=== PATIENT | female | born 1945 ===

== ENCOUNTER 2018-07-01 21:02 | Inpatient (IN) | payer MEDICARE, MEDICAID ==
[2018-07-01 21:03] VITALS: BMI 40.2
[2018-07-01] MEDS ORDERED: Albuterol-Ipratrop 3 mg / 0.5 (3 ml) UD INH STA ×2 (22:06→23:17)
--- NOTE | 2018-07-01 22:08 | C.PDOC ---
History Of Present Illness 73 y/o female c/o chest pain, lower back pain, subjective fever and cough. pt seen by pmd today and sts she went to pharmacy but rx from pmd not there. pt reports she was given an injection in doctor's office of unknown medication. pt took nothing for pain. 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 History/Exam Limitations: language barrier Onset/Duration Of Symptoms: Days Current Symptoms Are (Timing): Worse Quality Of Discomfort: "Pain" Past Medical History Reviewed: Historical Data, Nursing Documentation, Vital Signs Vital Signs: Last Vital Signs Temp 99.5 F 07/01/18 21:18 Pulse 108 H 07/01/18 21:18 Resp 20 07/01/18 21:18 BP 136/89 07/01/18 21:18 Pulse Ox 96 07/01/18 21:18 - Medical History PMH: Arthritis (LOW BACK AND RIGHT SHOULDER), Asthma, Colonic Polyps, Diverticulitis, HTN Denies: Chronic Kidney Disease Family History: States: Unknown Family Hx - Social History Hx Tobacco Use: No Hx Alcohol Use: Yes Hx Substance Use: No - Immunization History Hx Tetanus Toxoid Vaccination: No Hx Influenza Vaccination: Yes Hx Pneumococcal Vaccination: Yes Review Of Systems Constitutional: Positive for: Fever (subjective) Cardiovascular: Negative for: Chest Pain Respiratory: Positive for: Cough, Shortness of Breath, Pleuritic Pain, Wheezing Gastrointestinal: Negative for: Nausea, Vomiting, Abdominal Pain Musculoskeletal: Positive for: Back Pain Skin: Negative for: Rash Neurological: Negative for: Weakness, Numbness Physical Exam - Physical Exam Appears: Non-toxic, Other (ovese elderly female, ) Skin: Warm, Dry Head: Atraumatic, Normacephalic Oral Mucosa: Moist Throat: No Erythema, No Exudate Neck: Supple Chest: Symmetrical, No Deformity, Tenderness (antrerior chest wall) Cardiovascular: Rhythm Regular, No Murmur Respiratory: Decreased Breath Sounds, No Rales, No Rhonchi, Wheezing, Other (coarse hacking/wheezing cough) Gastrointestinal/Abdominal: Bowel Sounds, Soft, No Tenderness Neurological/Psych: Oriented x3, Normal Speech, Normal Cognition ED Course And Treatment - Laboratory Results Result Diagrams: 07/01/18 22:46 07/01/18 22:46 O2 Sat by Pulse Oximetry: 96 Medical Decision Making Medical Decision Makin discussed with Dr Molina; pt was given dose of steroids via im injection in office today. another dose not given in er tonight. [id number] Molina, will admit to her service. Disposition Discussed With .: Yin Molina Doctor Will See Patient In The: Hospital - Disposition Disposition: HOSPITALIZED Disposition Time: 00:34 Condition: STABLE - Clinical Impression Clinical Impression: Asthma with exacerbation, Pneumonia, Bandemia
[2018-07-01] MEDS ORDERED: Albuterol-Ipratrop 3 mg / 0.5 (3 ml) UD ONE ×2 (22:39→23:24)
[2018-07-01 23:04] LABS: ALB/GLOB RATIO 1.5 (1.0-2.1); ALBUMIN 4.5 g/dL (3.5-5.0); ALT/SGPT 28 U/L (9-52); AST/SGOT 28 U/L (14-36); BLOOD UREA NITROGEN 19 mg/dL (7-17); CALCIUM 9.1 mg/dl (8.6-10.4); GFR NON-AFRICAN AMERICAN > 60
[2018-07-01] MEDS ORDERED: cefTRIAXone IV 1 gm in Dextros 50 ML IVPB STA (23:07)
[2018-07-01] MEDS ORDERED: Azithromycin 500 MG in Sodium Chloride 0.9% 250 ML IVPB STA (23:08)
[2018-07-01] MEDS ORDERED: Azithromycin 500mg/250ML NS 500 MG/250 ML BAG IVPB ONE (23:17)
[2018-07-01 23:19] LABS: SQUAMOUS EPITHIAL < 1 /hpf (0-5); URINE BACTERIA RARE (<OCC); URINE BILIRUBIN NEGATIVE (NEGATIVE); URINE BLOOD NEGATIVE (NEGATIVE); URINE CLARITY Clear (Clear); URINE COLOR Straw (YELLOW); URINE GLUCOSE (UA) NORMAL (Normal); URINE LEUKOCYTE ESTERASE NEG Leu/uL (Negative); URINE PROTEIN NEGATIVE (NEGATIVE); URINE UROBILINOGEN NORMAL mg/dL (0.2-1.0)
[2018-07-01 23:27] LABS: BASO # 0.1 K/uL (0.0-0.2); BASO % 0.8 % (0.0-2.0); EOS % 0.6 % (0.0-4.0); HEMOGLOBIN 13.1 g/dL (11.0-16.0); MONO # 0.3 K/uL (0.0-0.8); NEUT # 6.7 K/uL (1.8-7.0); WHITE BLOOD COUNT 7.9 K/uL (4.8-10.8)
[2018-07-01 23:33] LABS: LYMPH # 0.7 K/uL (1.0-4.3); LYMPH % 9.4 % (20.0-40.0); MEAN CELL VOLUME 88.5 fL (81.0-99.0); MEAN CORPUSCULAR HEMOGLOBIN 28.8 pg (27.0-31.0); MEAN CORPUSCULAR HGB CONC 32.5 g/dL (33.0-37.0); MEAN PLATELET VOLUME 10.4 fL (7.2-11.7); MONO % 3.9 % (0.0-10.0); NEUT % 85.3 % (50.0-75.0); NRBC % 0.3 % (0.0-2.0); PLATELET COUNT 176 K/uL (130-400); RBC 4.54 Mil/uL (3.80-5.20)
[2018-07-01 23:52] LABS: PLATELET ESTIMATE NORMAL (NORMAL)
[2018-07-01 23:54] LABS: BANDS 6 % (0-2); LYMPHOCYTE 10 % (20-40); MONOCYTE 4 % (0-10); NEUTROPHIL 80 % (50-75); TOTAL CELLS COUNTED 100
[2018-07-01 23:55] LABS: ANISOCYTOSIS SLIGHT; POIKILOCYTOSIS SLIGHT
[2018-07-01 23:56] LABS: HYPERSEGMENTATION PRESENT; LARGE PLATELETS PRESENT; MICROCYTOSIS SLIGHT; POLYCHROMIC SLIGHT; SMUDGE CELLS PRESENT; SPHEROCYTES SLIGHT
[2018-07-02] MEDS ORDERED: Albuterol 0.083% Inhal Sol (2.5 mg/3 mL) UD INH PRN (00:45)
[2018-07-02] MEDS: Sodium Chloride 0.45% 1,000 ML IV SCH ×4 (01:30→21:30)
[2018-07-02] MEDS: MethylPREDNISolone 40 mg Vial IVP SCH ×3 (06:35→21:28)
[2018-07-02] MEDS: Albuterol 0.083% Inhal Sol (2.5 mg/3 mL) UD INH SCH ×3 (07:30→20:00)
[2018-07-02] MEDS ORDERED: Enoxaparin 40 mg Syringe SC ONE ×2 (08:00→11:30)
[2018-07-02 08:29] LABS: CK-MB 1.07 ng/mL (0.0-3.38)
[2018-07-02 08:53] LABS: BLOOD UREA NITROGEN 13 mg/dL (7-17); CALCIUM 8.9 mg/dl (8.6-10.4); GFR NON-AFRICAN AMERICAN > 60
[2018-07-02] MEDS ORDERED: Fluticasone Nasal 50 mcg/Spray NS SCH (10:00)
[2018-07-02] MEDS: Azithromycin 500 MG in Sodium Chloride 0.9% 250 ML IVPB SCH (10:31)
[2018-07-02] MEDS: Pantoprazole 20 mg EC Tab PO SCH (10:33)
--- NOTE | 2018-07-02 10:46 | RAD ---
HISTORY: SOB COMPARISON: Chest x-ray performed 05/09/15 TECHNIQUE: Chest PA and lateral FINDINGS: Examination markedly limited by habitus and hypoinflation. LUNGS: Mild left basilar atelectasis/infiltrate. PLEURA: No significant pleural effusion identified. No definite pneumothorax . CARDIOVASCULAR: Heart size appears within normal limits. Ectatic aorta. Faint atherosclerotic calcifications of the aorta. OSSEOUS STRUCTURES: Degenerative changes of the spine. VISUALIZED UPPER ABDOMEN: Unremarkable. OTHER FINDINGS: None. IMPRESSION: Mild left basilar atelectasis/infiltrate.
[2018-07-02] MEDS: cefTRIAXone IV 1 gm in Dextros 50 ML IVPB SCH (11:33)
--- NOTE | 2018-07-02 18:58 | CP.PCM.HP ---
History of Present Illness - History of Present Illness History of Present Illness: cc: sob and wheezing HPI; PT is a 73 year old female well known to me who presented to my office with wheezing and uri. PT was given one dose of IM Solumedrol and given sent home with meds for asthma exac and anbx. Upon arriving at home she became fearful of being home alone as she had been wheezing and not able to sleep at night. Pt reports no chest pain , no fever, no leg edema, PT is a no smoker. Pmhx asthma htn morbid obesity vertigo uterine ca sp surgery HPV+ OA Major depression recurrent Sleep apnea with poor compliance with CPA Radiculopathy impaired memory mild. social no tob no ethoh Allergy to aubrey ( angioedema) MEds; amlodipine 5 qd ventolin carafate HCTz inhaled corticosteroid Present on Admission - Present on Admission Any Indicators Present on Admission: No Review of Systems - Constitutional Constitutional: Snoring, Sleep Apnea. absent: Anorexia, Chills, Fatigue, Fever - EENT Nose/Mouth/Throat: absent: Epistaxis, Dry Mouth - Cardiovascular Cardiovascular: absent: Chest Pain - Respiratory Respiratory: Cough, Wheezing, Pain with Coughing - Gastrointestinal Gastrointestinal: absent: Abdominal Pain, Diarrhea Past Patient History - Past Medical History & Family History Past Medical History?: Yes - Past Social History Smoking Status: Unknown If Ever Smoked - CARDIAC Hx Cardiac Disorders: Yes Hx Hypertension: Yes - PULMONARY Hx Respiratory Disorders: Yes Hx Asthma: Yes - NEUROLOGICAL Hx Neurological Disorder: Yes (FORGETFULNESS) Hx Dizziness: Yes Hx Syncope: Yes Hx Vertigo: Yes - HEENT Hx HEENT Problems: No - RENAL Hx Chronic Kidney Disease: No - ENDOCRINE/METABOLIC Hx Endocrine Disorders: No - HEMATOLOGICAL/ONCOLOGICAL Hx Blood Disorders: No - INTEGUMENTARY Hx Dermatological Problems: No - MUSCULOSKELETAL/RHEUMATOLOGICAL Hx Arthritis: Yes (LOW BACK AND RIGHT SHOULDER) - GASTROINTESTINAL Hx Gastrointestinal Disorders: Yes Hx Diverticulitis: Yes - GENITOURINARY/GYNECOLOGICAL Hx Genitourinary Disorders: No - PSYCHIATRIC Hx Psychophysiologic Disorder: No Hx Substance Use: No - SURGICAL HISTORY Hx Surgeries: Yes Hx Hysterectomy: Yes Other/Comment: VARICOSE VEINS 3 MONTHS AGO; BLADDER LIFT - ANESTHESIA Hx Anesthesia: Yes Hx Anesthesia Reactions: No Hx Malignant Hyperthermia: No Has any member of the family had a problem w/ anesthesia?: No Meds Allergies/Adverse Reactions: Allergies Allergy/AdvReac Type Severity Reaction Status Date / Time No Known Allergies Allergy Verified 05/09/15 21:53 Physical Exam - Head Exam Head Exam: ATRAUMATIC - Eye Exam Eye Exam: Normal appearance Pupil Exam: PERRL - ENT Exam ENT Exam: Mucous Membranes Moist - Neck Exam Neck exam: Positive for: Normal Inspection - Respiratory Exam Respiratory Exam: Rhonchi, Wheezes - Cardiovascular Exam Cardiovascular Exam: REGULAR RHYTHM, +S1, +S2. absent: JVD - GI/Abdominal Exam GI & Abdominal Exam: Normal Bowel Sounds, Soft. absent: Distended - Extremities Exam Extremities exam: Negative for: joint swelling Results - Vital Signs Recent Vital Signs: Last Vital Signs Temp 97.7 F 07/02/18 15:00 Pulse 87 07/02/18 15:00 Resp 20 07/02/18 15:00 BP 115/70 07/02/18 15:00 Pulse Ox 95 07/02/18 15:00 - Labs Result Diagrams: 07/01/18 22:46 07/02/18 07:26 Labs: Laboratory Results - last 24 hr 07/01/18 07/01/18 07/01/18 22:46 22:46 22:46 WBC 7.9 RBC 4.54 Hgb 13.1 Hct 40.2 MCV 88.5 MCH 28.8 MCHC 32.5 L RDW 15.0 H Plt Count 176 MPV 10.4 Neut % (Auto) 85.3 H Lymph % (Auto) 9.4 L Gem % (Auto) 3.9 Eos % (Auto) 0.6 Baso % (Auto) 0.8 Neut # (Auto) 6.7 Lymph # (Auto) 0.7 L Gem # (Auto) 0.3 Eos # (Auto) 0.0 Baso # (Auto) 0.1 Neutrophils % (Manual) 80 H Band Neutrophils % 6 H Lymphocytes % (Manual) 10 L Monocytes % (Manual) 4 Hypersegmented Polys Present Smudge Cells Present Platelet Estimate Normal Large Platelets Present Polychromasia Slight Poikilocytosis (manual Slight Anisocytosis (manual) Slight Microcytosis (manual) Slight Spherocytes Slight Sodium 139 Potassium 4.1 Chloride 102 Carbon Dioxide 25 Anion Gap 15 BUN 19 H Creatinine 0.6 L Est GFR ( Amer) > 60 Est GFR (Non-Af Amer) > 60 Random Glucose 126 H D Calcium 9.1 Total Bilirubin 0.4 AST 28 ALT 28 Alkaline Phosphatase 96 Total Creatine Kinase CK-MB (Mass) Troponin I < 0.0120 Total Protein 7.5 Albumin 4.5 Globulin 3.1 Albumin/Globulin Ratio 1.5 Urine Color Urine Clarity Urine pH Ur Specific [place] Urine Protein Urine Glucose (UA) Urine Ketones Urine Blood Urine Nitrate Urine Bilirubin Urine Urobilinogen Ur Leukocyte Esterase Urine WBC (Auto) Urine RBC (Auto) Ur Squamous Epith Cells Urine Bacteria Influenza Typ A,B (EIA) Negative for flu a/b 07/01/18 07/02/18 23:14 07:26 WBC RBC Hgb Hct MCV MCH MCHC RDW Plt Count MPV Neut % (Auto) Lymph % (Auto) Gem % (Auto) Eos % (Auto) Baso % (Auto) Neut # (Auto) Lymph # (Auto) Gem # (Auto) Eos # (Auto) Baso # (Auto) Neutrophils % (Manual) Band Neutrophils % Lymphocytes % (Manual) Monocytes % (Manual) Hypersegmented Polys Smudge Cells Platelet Estimate Large Platelets Polychromasia Poikilocytosis (manual Anisocytosis (manual) Microcytosis (manual) Spherocytes Sodium 139 Potassium 4.0 Chloride 106 Carbon Dioxide 24 Anion Gap 13 BUN 13 Creatinine 0.5 L Est GFR ( Amer) > 60 Est GFR (Non-Af Amer) > 60 Random Glucose 117 H Calcium 8.9 Total Bilirubin AST ALT Alkaline Phosphatase Total Creatine Kinase 114 CK-MB (Mass) 1.07 Troponin I < 0.0120 Total Protein Albumin Globulin Albumin/Globulin Ratio Urine Color Straw Urine Clarity Clear Urine pH 7.0 Ur Specific [place] 1.004 Urine Protein Negative Urine Glucose (UA) Normal Urine Ketones Negative Urine Blood Negative Urine Nitrate Negative Urine Bilirubin Negative Urine Urobilinogen Normal Ur Leukocyte Esterase Neg Urine WBC (Auto) < 1 Urine RBC (Auto) < 1 Ur Squamous Epith Cells < 1 Urine Bacteria Rare Influenza Typ A,B (EIA) Assessment & Plan - Assessment and Plan (Free Text) Assessment: cxr infiltrate/atelectasis Asthma exacerbation acute bronchitis/pnemonia htn mild dehydration Gentle hydration steroids nebs abx gi and dvt prophylaxis
[2018-07-02] MEDS: Budesonide 0.5 mg/2 ml Inhal Susp UD INH SCH (20:00)
[2018-07-02] MEDS: Fluticasone Nasal 50 mcg/Spray NS SCH (21:28)
[2018-07-03] MEDS: Albuterol 0.083% Inhal Sol (2.5 mg/3 mL) UD INH SCH ×4 (03:03→20:19)
[2018-07-03] MEDS: MethylPREDNISolone 40 mg Vial IVP SCH ×2 (05:44→14:27)
[2018-07-03] MEDS: Sodium Chloride 0.45% 1,000 ML IV SCH (05:46)
[2018-07-03] MEDS: Budesonide 0.5 mg/2 ml Inhal Susp UD INH SCH ×2 (07:35→20:19)
[2018-07-03 08:02] LABS: BLOOD UREA NITROGEN 16 mg/dL (7-17); CALCIUM 9.2 mg/dl (8.6-10.4); GFR NON-AFRICAN AMERICAN > 60
[2018-07-03] MEDS: Azithromycin 500 MG in Sodium Chloride 0.9% 250 ML IVPB SCH (08:49)
[2018-07-03] MEDS: Pantoprazole 20 mg EC Tab PO SCH (09:18)
[2018-07-03] MEDS: Fluticasone Nasal 50 mcg/Spray NS SCH ×2 (09:19→20:14)
[2018-07-03] MEDS: NIFEdipine 30 mg ER Tab PO SCH (09:20)
[2018-07-03] MEDS ORDERED: Potassium Chloride 20 mEq ER Tab PO ONE ×2 (10:00→20:00)
[2018-07-03] MEDS: cefTRIAXone IV 1 gm in Dextros 50 ML IVPB SCH (11:25)
[2018-07-03] MEDS: Enoxaparin 40 mg Syringe SC SCH (11:33)
--- NOTE | 2018-07-03 18:09 | CP.PCM.PN ---
Subjective - Date & Time of Evaluation Date of Evaluation: 07/03/18 Time of Evaluation: 18:09 - Subjective Subjective: Pt states wheezing has improved still coughing but dryer pt reports was able to walk a little today but feels weak on her feet Objective - Vital Signs/Intake and Output Vital Signs (last 24 hours): Temp Pulse Resp BP Pulse Ox 97.8 F 67 20 156/63 H 98 07/03/18 16:00 07/03/18 16:00 07/03/18 16:00 07/03/18 16:00 07/03/18 16:00 Intake and Output: 07/03/18 07/03/18 06:59 18:59 Intake Total 1050 1155 Output Total 600 Balance 450 1155 - Medications Medications: Current Medications Albuterol Sulfate (Albuterol 0.083% Inhal Renetta (2.5 Mg/3 Ml) Ud) 2.5 mg INH RQ6 [facility] Last Admin: 07/03/18 13:20 Dose: 2.5 mg Albuterol Sulfate (Albuterol 0.083% Inhal Renetta (2.5 Mg/3 Ml) Ud) 2.5 mg INH RQ4 PRN PRN Reason: Wheezing Alprazolam (Xanax) 0.25 mg PO DAILY PRN PRN Reason: Anxiety Budesonide (Pulmicort Respules) 0.5 mg INH RQ12 [facility] Last Admin: 07/03/18 07:35 Dose: 0.5 mg Enoxaparin Sodium (Lovenox) 40 mg SC DAILY [facility] Last Admin: 07/03/18 11:33 Dose: 40 mg Fluticasone Propionate (Flonase) 1 spr NS BID [facility] Last Admin: 07/03/18 09:19 Dose: 1 spry Hydrochlorothiazide (Hydrodiuril) 25 mg PO DAILY [facility] Last Admin: 07/03/18 09:19 Dose: 25 mg Ceftriaxone Sodium (Rocephin Iv 1 Gm Duplex) 50 mls @ 100 mls/hr IVPB DAILY [facility]; Protocol Last Admin: 07/03/18 11:25 Dose: 100 mls/hr Methylprednisolone (Solu-Medrol) 60 mg IV Q12 [facility] Stop: 07/05/18 10:01 Nifedipine (Procardia Xl) 30 mg PO DAILY [facility] Last Admin: 07/03/18 09:20 Dose: 30 mg Pantoprazole Sodium (Protonix Ec Tab) 20 mg PO DAILY [facility] Last Admin: 07/03/18 09:18 Dose: 20 mg Potassium Chloride (K-Dur 20 Meq Er Tab) 20 meq PO ONCE ONE Stop: 07/03/18 20:01 - Labs Labs: 07/01/18 22:46 07/03/18 07:04 - Constitutional Appears: Non-toxic - Eye Exam Eye Exam: Normal appearance - ENT Exam ENT Exam: Mucous Membranes Moist - Respiratory Exam Respiratory Exam: Wheezes (much improved) - GI/Abdominal Exam GI & Abdominal Exam: Soft, Normal Bowel Sounds. absent: Tenderness - Extremities Exam Extremities Exam: absent: Pedal Edema Assessment and Plan - Assessment and Plan (Free Text) Assessment: asthma exac: better cut down on steroids bronchitis/?lung infiltrate; cont abx hypokalemia; replace htn; elevated today dc ivf weakness; lives alone will get PT
[2018-07-04] MEDS: Albuterol 0.083% Inhal Sol (2.5 mg/3 mL) UD INH SCH ×3 (01:51→19:44)
[2018-07-04] MEDS: Budesonide 0.5 mg/2 ml Inhal Susp UD INH SCH ×2 (07:30→19:44)
[2018-07-04] MEDS: Enoxaparin 40 mg Syringe SC SCH (10:16)
[2018-07-04] MEDS: Pantoprazole 20 mg EC Tab PO SCH (10:16)
[2018-07-04] MEDS: Fluticasone Nasal 50 mcg/Spray NS SCH ×2 (10:16→18:28)
[2018-07-04] MEDS: cefTRIAXone IV 1 gm in Dextros 50 ML IVPB SCH (10:17)
[2018-07-04] MEDS: NIFEdipine 30 mg ER Tab PO SCH (10:17)
--- NOTE | 2018-07-04 20:16 | CP.PCM.PN ---
Subjective - Date & Time of Evaluation Date of Evaluation: 07/04/18 Time of Evaluation: 20:16 - Subjective Subjective: Pt reports feeling better not wheezing much still feels a little weak but much better Objective - Vital Signs/Intake and Output Vital Signs (last 24 hours): Temp Pulse Resp BP Pulse Ox 97.8 F 60 20 145/74 96 07/04/18 16:00 07/04/18 16:00 07/04/18 16:00 07/04/18 16:00 07/04/18 16:00 Intake and Output: 07/04/18 07/05/18 18:59 06:59 Intake Total 780 Output Total 600 Balance 180 - Medications Medications: Current Medications Albuterol Sulfate (Albuterol 0.083% Inhal Renetta (2.5 Mg/3 Ml) Ud) 2.5 mg INH RQ6 [facility] Last Admin: 07/04/18 19:44 Dose: 2.5 mg Albuterol Sulfate (Albuterol 0.083% Inhal Renetta (2.5 Mg/3 Ml) Ud) 2.5 mg INH RQ4 PRN PRN Reason: Wheezing Alprazolam (Xanax) 0.25 mg PO DAILY PRN PRN Reason: Anxiety Budesonide (Pulmicort Respules) 0.5 mg INH RQ12 [facility] Last Admin: 07/04/18 19:44 Dose: 0.5 mg Enoxaparin Sodium (Lovenox) 40 mg SC DAILY [facility] Last Admin: 07/04/18 10:16 Dose: 40 mg Fluticasone Propionate (Flonase) 1 spr NS BID [facility] Last Admin: 07/04/18 18:28 Dose: 1 spry Hydrochlorothiazide (Hydrodiuril) 25 mg PO DAILY [facility] Last Admin: 07/04/18 10:16 Dose: 25 mg Ceftriaxone Sodium (Rocephin Iv 1 Gm Duplex) 50 mls @ 100 mls/hr IVPB DAILY [facility]; Protocol Last Admin: 07/04/18 10:17 Dose: 100 mls/hr Methylprednisolone (Solu-Medrol) 60 mg IV Q12 [facility] Stop: 07/05/18 10:01 Last Admin: 07/04/18 10:16 Dose: 60 mg Nifedipine (Procardia Xl) 30 mg PO DAILY [facility] Last Admin: 07/04/18 10:17 Dose: 30 mg Pantoprazole Sodium (Protonix Ec Tab) 20 mg PO DAILY [facility] Last Admin: 07/04/18 10:16 Dose: 20 mg - Labs Labs: 07/01/18 22:46 07/03/18 07:04 - Constitutional Appears: Well, Non-toxic - Eye Exam Eye Exam: Normal appearance - ENT Exam ENT Exam: Mucous Membranes Moist - Respiratory Exam Respiratory Exam: Clear to Ausculation Bilateral (some scattered wheezing) Assessment and Plan - Assessment and Plan (Free Text) Assessment: asthma exacerbation; better cont current tx bronchitis on abx bp not ideal today cont iv steroids until tomorrow dc planning for tomorrow
--- NOTE | 2018-07-04 21:56 | CARD ---
APPROVED REPORT Date of service: 07/01/2018 EKG Measurement Heart [id number] <Conclusion> Normal sinus rhythm Cannot rule out Anterior infarct, age undetermined Abnormal ECG
[2018-07-05] MEDS: Albuterol 0.083% Inhal Sol (2.5 mg/3 mL) UD INH SCH ×3 (02:04→13:25)
[2018-07-05] MEDS: Budesonide 0.5 mg/2 ml Inhal Susp UD INH SCH (07:40)
[2018-07-05 08:20] LABS: BASO % 0.5 % (0.0-2.0); HEMOGLOBIN 12.9 g/dL (11.0-16.0); LYMPH # 0.7 K/uL (1.0-4.3); LYMPH % 7.9 % (20.0-40.0); MEAN CELL VOLUME 87.8 fL (81.0-99.0); MEAN CORPUSCULAR HEMOGLOBIN 29.2 pg (27.0-31.0); MEAN CORPUSCULAR HGB CONC 33.3 g/dL (33.0-37.0); MEAN PLATELET VOLUME 10.4 fL (7.2-11.7); MONO # 0.2 K/uL (0.0-0.8); MONO % 2.1 % (0.0-10.0); NEUT # 8.3 K/uL (1.8-7.0); NEUT % 89.5 % (50.0-75.0); PLATELET COUNT 190 K/uL (130-400); RBC 4.42 Mil/uL (3.80-5.20); RED CELL DISTRIBUTION WIDTH 15.1 % (11.5-14.5); WHITE BLOOD COUNT 9.3 K/uL (4.8-10.8)
[2018-07-05 08:29] LABS: ALB/GLOB RATIO 1.3 (1.0-2.1); ALBUMIN 3.8 g/dL (3.5-5.0); ALT/SGPT 25 U/L (9-52); AST/SGOT 24 U/L (14-36); BLOOD UREA NITROGEN 28 mg/dL (7-17); CALCIUM 9.2 mg/dl (8.6-10.4); GFR NON-AFRICAN AMERICAN > 60
[2018-07-05] MEDS: Enoxaparin 40 mg Syringe SC SCH (09:53)
[2018-07-05] MEDS: Pantoprazole 20 mg EC Tab PO SCH (09:53)
[2018-07-05] MEDS: NIFEdipine 30 mg ER Tab PO SCH (09:54)
[2018-07-05] MEDS: Fluticasone Nasal 50 mcg/Spray NS SCH ×2 (09:54→17:45)
[2018-07-05] MEDS: cefTRIAXone IV 1 gm in Dextros 50 ML IVPB SCH (10:03)
[2018-07-05 10:16] VITALS: RESP 20
[2018-07-05 10:27] LABS: BANDS 2 % (0-2); LYMPHOCYTE 7 % (20-40); MONOCYTE 2 % (0-10); NEUTROPHIL 89 % (50-75); TOTAL CELLS COUNTED 100
[2018-07-05 10:30] LABS: PLATELET ESTIMATE NORMAL (NORMAL)
[2018-07-05 16:11] VITALS: BP 113/70; PULSE 71; TEMP 98.3; O2SAT 93
--- NOTE | 2018-07-05 16:20 | CP.PCM.PN ---
Subjective - Date & Time of Evaluation Date of Evaluation: 07/05/18 Time of Evaluation: 16:20 - Subjective Subjective: alert and orientedx3, no sob or chest pains, no acute wheezing. Objective - Vital Signs/Intake and Output Vital Signs (last 24 hours): Temp Pulse Resp BP Pulse Ox 98.3 F 71 20 113/70 93 L 07/05/18 15:00 07/05/18 15:00 07/05/18 15:00 07/05/18 15:00 07/05/18 15:00 Intake and Output: 07/05/18 07/05/18 06:59 18:59 Intake Total 920 550 Balance 920 550 - Medications Medications: Current Medications Albuterol Sulfate (Albuterol 0.083% Inhal Renetta (2.5 Mg/3 Ml) Ud) 2.5 mg INH RQ6 [facility] Last Admin: 07/05/18 13:25 Dose: 2.5 mg Albuterol Sulfate (Albuterol 0.083% Inhal Renetta (2.5 Mg/3 Ml) Ud) 2.5 mg INH RQ4 PRN PRN Reason: Wheezing Alprazolam (Xanax) 0.25 mg PO DAILY PRN PRN Reason: Anxiety Budesonide (Pulmicort Respules) 0.5 mg INH RQ12 [facility] Last Admin: 07/05/18 07:40 Dose: 0.5 mg Enoxaparin Sodium (Lovenox) 40 mg SC DAILY [facility] Last Admin: 07/05/18 09:53 Dose: 40 mg Fluticasone Propionate (Flonase) 1 spr NS BID [facility] Last Admin: 07/05/18 09:54 Dose: 1 spry Hydrochlorothiazide (Hydrodiuril) 25 mg PO DAILY [facility] Last Admin: 07/05/18 09:53 Dose: 25 mg Ceftriaxone Sodium (Rocephin Iv 1 Gm Duplex) 50 mls @ 100 mls/hr IVPB DAILY [facility]; Protocol Last Admin: 07/05/18 10:03 Dose: 100 mls/hr Nifedipine (Procardia Xl) 30 mg PO DAILY [facility] Last Admin: 07/05/18 09:54 Dose: 30 mg Pantoprazole Sodium (Protonix Ec Tab) 20 mg PO DAILY [facility] Last Admin: 07/05/18 09:53 Dose: 20 mg - Labs Labs: 07/05/18 08:10 07/05/18 08:10 Assessment and Plan - Assessment and Plan (Free Text) Assessment: 73 year old female admitted with asthma exacerbation, seen and examined. Alert and oriented x3, has minimal balateral wheezing on the bases, ambulated in the hallway , The oxygen saturation went down to 91% after walking on room air. No sob or acute distress noted. Discussed with DR Molina, plan to discharge home on present medications. Advised to follow up in the office in 1 week.
--- NOTE | 2018-07-05 19:11 | CP.PCM.DIS ---
Provider - Provider Date of Admission: 07/02/18 00:59 Attending physician: Yin Molina MD Time Spent in preparation of Discharge (in minutes): 30 Hospital Course - Lab Results Lab Results: Micro Results 07/01/18 23:16 Blood Blood Culture - Preliminary NO GROWTH AFTER 3 DAYS 07/01/18 23:14 Blood Blood Culture - Preliminary NO GROWTH AFTER 3 DAYS Most Recent Lab Values WBC 9.3 K/uL (4.8-10.8) 07/05/18 08:10 RBC 4.42 Mil/uL (3.80-5.20) 07/05/18 08:10 Hgb 12.9 g/dL (11.0-16.0) 07/05/18 08:10 Hct 38.8 % (34.0-47.0) 07/05/18 08:10 MCV 87.8 fL (81.0-99.0) 07/05/18 08:10 MCH 29.2 pg (27.0-31.0) 07/05/18 08:10 MCHC 33.3 g/dL (33.0-37.0) 07/05/18 08:10 RDW 15.1 % (11.5-14.5) H 07/05/18 08:10 Plt Count 190 K/uL (130-400) 07/05/18 08:10 MPV 10.4 fL (7.2-11.7) 07/05/18 08:10 Neut % (Auto) 89.5 % (50.0-75.0) H 07/05/18 08:10 Lymph % (Auto) 7.9 % (20.0-40.0) L 07/05/18 08:10 [place] % (Auto) 2.1 % (0.0-10.0) 07/05/18 08:10 Eos % (Auto) 0.0 % (0.0-4.0) 07/05/18 08:10 Baso % (Auto) 0.5 % (0.0-2.0) 07/05/18 08:10 Neut # (Auto) 8.3 K/uL (1.8-7.0) H 07/05/18 08:10 Lymph # (Auto) 0.7 K/uL (1.0-4.3) L 07/05/18 08:10 [place] # (Auto) 0.2 K/uL (0.0-0.8) 07/05/18 08:10 Eos # (Auto) 0.0 K/uL (0.0-0.7) 07/05/18 08:10 Baso # (Auto) 0.0 K/uL (0.0-0.2) 07/05/18 08:10 Neutrophils % (Manual) 89 % (50-75) H 07/05/18 08:10 Band Neutrophils % 2 % (0-2) 07/05/18 08:10 Lymphocytes % (Manual) 7 % (20-40) L 07/05/18 08:10 Monocytes % (Manual) 2 % (0-10) 07/05/18 08:10 Hypersegmented Polys Present 07/01/18 22:46 Smudge Cells Present 07/01/18 22:46 Platelet Estimate Normal (NORMAL) 07/05/18 08:10 Large Platelets Present 07/01/18 22:46 RBC Morphology Normal 07/05/18 08:10 Polychromasia Slight 07/01/18 22:46 Poikilocytosis (manual Slight 07/01/18 22:46 Anisocytosis (manual) Slight 07/01/18 22:46 Microcytosis (manual) Slight 07/01/18 22:46 Spherocytes Slight 07/01/18 22:46 Sodium 137 mmol/L (132-148) 07/05/18 08:10 Potassium 3.8 mmol/L (3.6-5.2) 07/05/18 08:10 Chloride 100 mmol/L (98-107) 07/05/18 08:10 Carbon Dioxide 27 mmol/L (22-30) 07/05/18 08:10 Anion Gap 15 (10-20) 07/05/18 08:10 BUN 28 mg/dL (7-17) H 07/05/18 08:10 Creatinine 0.7 mg/dL (0.7-1.2) 07/05/18 08:10 Est GFR ( Amer) > 60 07/05/18 08:10 Est GFR (Non-Af Amer) > 60 07/05/18 08:10 Random Glucose 207 mg/dL (65-105) H 07/05/18 08:10 Calcium 9.2 mg/dl (8.6-10.4) 07/05/18 08:10 Total Bilirubin 0.5 mg/dL (0.2-1.3) 07/05/18 08:10 AST 24 U/L (14-36) 07/05/18 08:10 ALT 25 U/L (9-52) 07/05/18 08:10 Alkaline Phosphatase 73 U/L (38-126) 07/05/18 08:10 Total Creatine Kinase 114 U/L (30-135) 07/02/18 07:26 CK-MB (Mass) 1.07 ng/mL (0.0-3.38) 07/02/18 07:26 Troponin I < 0.0120 ng/mL (0.00-0.120) 07/02/18 07:26 Total Protein 6.7 g/dL (6.3-8.3) 07/05/18 08:10 Albumin 3.8 g/dL (3.5-5.0) 07/05/18 08:10 Globulin 2.9 gm/dL (2.2-3.9) 07/05/18 08:10 Albumin/Globulin Ratio 1.3 (1.0-2.1) 07/05/18 08:10 Urine Color Straw (YELLOW) 07/01/18 23:14 Urine Clarity Clear (Clear) 07/01/18 23:14 Urine pH 7.0 (5.0-8.0) 07/01/18 23:14 Ur Specific [place] 1.004 (1.003-1.030) 07/01/18 23:14 Urine Protein Negative mg/dL (NEGATIVE) 07/01/18 23:14 Urine Glucose (UA) Normal mg/dL (Normal) 07/01/18 23:14 Urine Ketones Negative mg/dL (NEGATIVE) 07/01/18 23:14 Urine Blood Negative (NEGATIVE) 07/01/18 23:14 Urine Nitrate Negative (NEGATIVE) 07/01/18 23:14 Urine Bilirubin Negative (NEGATIVE) 07/01/18 23:14 Urine Urobilinogen Normal mg/dL (0.2-1.0) 07/01/18 23:14 Ur Leukocyte Esterase Neg Mateo/uL (Negative) 07/01/18 23:14 Urine WBC (Auto) < 1 /hpf (0-5) 07/01/18 23:14 Urine RBC (Auto) < 1 /hpf (0-3) 07/01/18 23:14 Ur Squamous Epith Cells < 1 /hpf (0-5) 07/01/18 23:14 Urine Bacteria Rare (<OCC) 07/01/18 23:14 Influenza Typ A,B (EIA) Negative for flu a/b (NEGATIVE) 07/01/18 22:46 - Hospital Course Hospital Course: Pt was admitted with asthma exacerbation and bronchitis pt was treated with abx, nebx and iv steroids pt improved with resolution of wheezing and religious of comfortable breathing. Discharge Exam - Head Exam Head Exam: ATRAUMATIC - Eye Exam Eye Exam: Normal appearance - Respiratory Exam Respiratory Exam: Clear to PA & Lateral, NORMAL BREATHING PATTERN Discharge Plan - Follow Up Plan Condition: STABLE Additional Instructions: continue with present medications follow up in the office in 1 week
== END 2018-07-05 18:45 | disposition home or self-care (01) | DRG 202 ==
LOC: C.ER 21:02 → C.9E 07-02 00:34 → OBSVTOIN 07-02 00:59 → C.3T 07-02 01:09
PROVIDERS: ADMIT Internal Medicine; ATTEND Internal Medicine
DX: J45.901 Unspecified asthma with (acute) exacerbation (principal); J18.9 Pneumonia, unspecified organism; F33.9 Major depressive disorder, recurrent, unspecified; E66.01 Morbid (severe) obesity due to excess calories; M19.011 Primary osteoarthritis, right shoulder; G47.30 Sleep apnea, unspecified; M54.10 Radiculopathy, site unspecified; J20.9 Acute bronchitis, unspecified; E86.0 Dehydration; E87.6 Hypokalemia; I10 Essential (primary) hypertension

== ENCOUNTER 2018-08-28 | Observation (INO) | payer MEDICARE, MEDICAID | END 2018-09-01 12:50 | disposition home or self-care (01) | PROVIDERS: ADMIT Internal Medicine | CPT/HCPCS: 36415; 71045; 71275; 80048; 80053; 82785; 82948; 83735; 83880; 84100; 84484; 85025; 85378; 93005; 93970; 94640; 96374; 97110; 97116; 97162; 97530; 99285; G0378; G8978; G8979; J1650; J2920; J2930; J7030; Q9967 ==